=== PATIENT | female | born 1935 | race Asian ===

== ENCOUNTER 2018-10-30 06:47 | Day surgery (SDC) | payer MEDICARE, OTHER ==
[~2018-10-30] VITALS: Ht 152.4 cm; Wt 42.4 kg
[2018-10-30 07:26] VITALS: Ht 152.4 cm; Wt 42.4 kg
[2018-10-30 07:57] VITALS: BP 164/74; PULSE 77; RESP 17
[2018-10-30] MEDS ORDERED: MIDAZOLAM 1 MG/ML 2 ML INJ ONE (09:03)
[2018-10-30] MEDS ORDERED: FENTAnyl 50 MCG/ML VIAL ONE (09:03)
[2018-10-30 09:20] VITALS: BP 162/69; PULSE 61; RESP 17
== END 2018-10-30 12:00 | disposition home or self-care (01) ==
LOC: GIL 06:47
PROVIDERS: ATTEND Internal Medicine Gastroenterology
DX: Z12.11 Encounter for screening for malignant neoplasm of colon (principal); K57.30 Diverticulosis of large intestine without perforation or abscess without bleeding
CPT/HCPCS: G0121; J2250; J3010